=== PATIENT | male | born 1960 | race Caucasian/White ===

== ENCOUNTER 2023-08-15 10:05 | Day surgery (SDC) | payer MEDICAID, OTHER ==
[~2023-08-15] VITALS: Ht 172.7 cm; Wt 64.9 kg
[~2023-08-15 10:05] MED LIST: LIDOCAINE 2%, 20 ML MDV ONE; NORMAL SALINE 10 ML VIAL ONE; iopamidoL 50 ML VIAL IV ONE; methylPREDNISolone ACETATE 40 MG/ML ONE
[2023-08-15] MEDS: INSULIN REGULAR, HUMAN 100 UNITS/ML, 3 ML VIAL SUBCUT ONE (12:23)
[2023-08-15] MEDS ORDERED: DIPHENHYDRAMINE INJ 50 MG/ML VIAL ONE (12:41)
[2023-08-15] MEDS: fentaNYL CITRATE/PF 100 MCG/2 ML AMP ONE (13:19)
[2023-08-15] MEDS: MIDAZOLAM HCL 5 MG/5 ML VIAL ONE (13:20)
[2023-08-15 13:55] VITALS: O2SAT 99
[2023-08-15 17:21] VITALS: BP_SYST 121; PULSE 90; RESP 16
== END 2023-08-15 14:07 | disposition home or self-care (01) ==
LOC: SDS 10:05 → SMU 10:06 → SDS 14:07
PROVIDERS: ATTEND Internal Medicine
DX: S23.9XXA Sprain of unspecified parts of thorax, initial encounter (principal); M54.12 Radiculopathy, cervical region; M51.9 Unspecified thoracic, thoracolumbar and lumbosacral intervertebral disc disorder; M79.10 Myalgia, unspecified site; I10 Essential (primary) hypertension; F41.9 Anxiety disorder, unspecified; E11.9 Type 2 diabetes mellitus without complications; F32.A Depression, unspecified; E78.5 Hyperlipidemia, unspecified; Z90.49 Acquired absence of other specified parts of digestive tract; Z98.890 Other specified postprocedural states; Z98.1 Arthrodesis status; Z79.84 Long term (current) use of oral hypoglycemic drugs; Z79.899 Other long term (current) drug therapy; X58.XXXA Exposure to other specified factors, initial encounter; Y93.89 Activity, other specified; Y92.89 Other specified places as the place of occurrence of the external cause; Y99.8 Other external cause status
CPT/HCPCS: 62321; 82948; J1815; J1030; J2250; J3010; Q9967; 76000; J1200; J2001